=== PATIENT | female | born 1940 | race Caucasian/White ===

== ENCOUNTER → 2022-04-28 | Outpatient (CLI) | payer MEDICARE | LOC: M RAD 10:10 | PROVIDERS: ATTEND Physical Medicine & Rehabilitation | DX: M79.605 Pain in left leg (principal) ==

== ENCOUNTER 2023-10-24 10:25 | Emergency (ER) | payer MEDICARE, OTHER ==
[~2023-10-24] VITALS: Ht 157.5 cm; Wt 82.7 kg
[2023-10-24 10:27] VITALS: TEMP 98.1
[2023-10-24] MEDS ORDERED: LEVO50TA5 PO (10:47)
[2023-10-24] MEDS ORDERED: LISI20TA33 PO (10:47)
[2023-10-24] MEDS ORDERED: PRAV40TA2 PO (10:47)
[2023-10-24 11:02] LABS: BASO # 0.1 10^3/uL (0.0-0.2); BASO % 0.6 % (0.0-1.0); EOS # 0.3 10^3/uL (0.0-0.5); HEMATOCRIT 39.4 % (36.0-47.0); HEMOGLOBIN 13.3 g/dl (12.0-15.5); LYMPH # 3.5 10^3/uL (1.5-5.0); LYMPH % 44.7 % (24.0-44.0); MEAN CORPUSCULAR HEMOGLOBIN 31.8 pg (27.0-33.0); MEAN CORPUSCULAR HGB CONC 33.8 g/dl (32.0-36.5); MEAN CORPUSCULAR VOLUME 94.3 fl (80.0-96.0); MONO # 0.6 10^3/uL (0.0-0.8); MONO % 7.6 % (2.0-8.0); NEUTROPHILS # 3.3 10^3/uL (1.5-8.5); NEUTROPHILS % 42.8 % (36.0-66.0); PLATELET COUNT, AUTOMATED 299 10^3/uL (150-450); RED BLOOD COUNT 4.18 10^6/uL (4.00-5.40); WHITE BLOOD COUNT 7.8 10^3/uL (4.0-10.0)
[2023-10-24 11:20] LABS: PROTHROMBIN TIME 12.9 SECONDS (12.5-14.5)
[2023-10-24 11:32] LABS: LIPASE 29 U/L (12-53)
[2023-10-24 11:34] LABS: ALBUMIN 3.7 G/DL (3.2-5.2); ALKALINE PHOSPHATASE 47 U/L (46-116); ALT/SGPT 21 U/L (7.0-40); AST/SGOT 39 U/L (<34); BILIRUBIN,DIRECT 0.1 MG/DL (<0.4); BILIRUBIN,TOTAL 0.6 MG/DL (0.3-1.2); BLOOD UREA NITROGEN 15 MG/DL (9-23); CALCIUM LEVEL 8.7 MG/DL (8.3-10.6); CARBON DIOXIDE LEVEL 25 MMOL/L (20-31); CHLORIDE LEVEL 105 MMOL/L (98-107); CK-MB VALUE MASS 1.7 NG/ML (<3.6); CREATININE FOR GFR 0.39 MG/DL (0.55-1.30); GLOMERULAR FILTRATION RATE > 60.0 (>32); GLUCOSE, FASTING 97 MG/DL (74-106); POTASSIUM SERUM 5.2 MMOL/L (3.5-5.1); SODIUM LEVEL 138 MMOL/L (136-145); TOTAL PROTEIN 7.4 G/DL (5.7-8.2)
[2023-10-24 11:36] LABS: FREE T4 1.29 NG/DL (0.89-1.76)
[2023-10-24] MEDS: SUCRALFATE SUSP 1GM/10ML UD PO ONE (11:39)
[2023-10-24 11:43] LABS: CPK CREATINE PHOSPHOKINASE 118 U/L (34-145); MB/CK RELATIVE INDEX 1.44 (< OR =4)
[2023-10-24] MEDS ORDERED: ISOVUE-370 76% 100ML VIAL As Ordered ONE (11:57)
[2023-10-24 12:02] LABS: RSV AMPLIFICATION NEGATIVE (NEGATIVE)
[2023-10-24 12:40] LABS: CK-MB VALUE MASS 1.5 NG/ML (<3.6)
[2023-10-24 12:42] LABS: MB/CK RELATIVE INDEX 1.85 (< OR =4)
[2023-10-24 13:19] VITALS: BP 216/96
[2023-10-24] MEDS: **hydrALAZINE** 10 MG TAB PO ONE (13:19)
[2023-10-24] MEDS: ACETAMINOPHEN *IV* 1,000 MG in IV 1 EA IV ONE (13:19)
[2023-10-24 14:48] VITALS: BP 158/74; O2SAT 96
[2023-10-24] MEDS ORDERED: HOME MED LIST COMPLETE! XX SCH (14:50)
[2023-10-24 14:51] LABS: CK-MB VALUE MASS 1.4 NG/ML (<3.6)
[2023-10-24 14:56] LABS: MB/CK RELATIVE INDEX 1.55 (< OR =4)
[2023-10-24] MEDS ORDERED: SUCR1TA PO (15:19)
[2023-10-24] MEDS ORDERED: OMEP40CA4 PO (15:19)
== END 2023-10-24 15:35 | disposition home or self-care (01) ==
LOC: M ED 10:25
DX: R07.89 Other chest pain (principal); K76.0 Fatty (change of) liver, not elsewhere classified; I10 Essential (primary) hypertension; E78.5 Hyperlipidemia, unspecified; E03.9 Hypothyroidism, unspecified; Z85.3 Personal history of malignant neoplasm of breast; Z92.21 Personal history of antineoplastic chemotherapy; Z88.0 Allergy status to penicillin
CPT/HCPCS: 71045; 71275; 74177; 80048; 80076; 82550; 82553; 83690; 83880; 84439; 84443; 84484; 85025; 85610; 85730; 87631; 93005; 93041; 94760; 96365; 99285; J0131; Q9967

== ENCOUNTER → 2023-11-03 | Outpatient (REF) | payer MEDICARE, OTHER ==
[~2023-11-03] MED LIST: LEVO50TA5 PO; LISI20TA33 PO; OMEP40CA4 PO; PRAV40TA2 PO; SUCR1TA PO
[2023-11-03 18:31] LABS: BLOOD UREA NITROGEN 11 MG/DL (9-23); CALCIUM LEVEL 8.8 MG/DL (8.3-10.6); CARBON DIOXIDE LEVEL 29 MMOL/L (20-31); CHLORIDE LEVEL 108 MMOL/L (98-107); CHOLESTEROL LEVEL 155 MG/DL (<200); CHOLESTEROL RISK RATIO 3.33 (<5); CREATININE FOR GFR 0.41 MG/DL (0.55-1.30); GLOMERULAR FILTRATION RATE > 60.0 (>32); GLUCOSE, FASTING 91 MG/DL (74-106); HDL CHOLESTEROL 46.5 MG/DL (>40); LDL CHOLESTEROL 89.9 MG/DL (<100); NON-HDL-C 108.5 MG/DL; POTASSIUM SERUM 4.3 MMOL/L (3.5-5.1); SODIUM LEVEL 141 MMOL/L (136-145); TRIGLYCERIDES LEVEL 93 MG/DL (<150)
[2023-11-03 18:37] LABS: THYROID STIMULATING HORMONE 2.196 uIU/ML (0.55-4.78)
[2023-11-03 18:38] LABS: TOTAL 25(OH) VITAMIN D 22.3 NG/ML (20.0-100.0)
== END ==
LOC: M LABDRWCV 17:22
PROVIDERS: ATTEND Student in an Organized Health Care Education/Training Program
DX: E78.5 Hyperlipidemia, unspecified (principal); E55.9 Vitamin D deficiency, unspecified; E03.9 Hypothyroidism, unspecified